=== PATIENT | male | born 1980 | race Caucasian/White ===

== ENCOUNTER 2023-11-03 03:32 | Emergency (ER) | payer OTHER ==
[2023-11-03] MEDS ORDERED: methylPREDNISolone sod succ 125 MG VIAL IM ONE (03:55)
[2023-11-03] MEDS ORDERED: PREDNISONE20 M1 PO (04:00)
== END 2023-11-03 04:32 | disposition home or self-care (01) ==
LOC: ED 03:32
DX: K14.8 Other diseases of tongue (principal); T36.1X5A Adverse effect of cephalosporins and other beta-lactam antibiotics, initial encounter; J45.909 Unspecified asthma, uncomplicated; I10 Essential (primary) hypertension; Z91.040 Latex allergy status; Y92.009 Unspecified place in unspecified non-institutional (private) residence as the place of occurrence of the external cause